=== PATIENT | female | born 1960 | race Caucasian/White ===

== ENCOUNTER 2016-08-15 06:56 | Day surgery (SDC) | payer BC ==
[2016-08-08 13:51] LABS: HEMATOCRIT 40.2 % (36.0-48.0); HEMOGLOBIN 13.6 g/dL (12.0-16.0)
[2016-08-08 14:11] LABS: BUN (BLOOD UREA NITROGEN) 19 MG/DL (6-23); CALCIUM, SERUM 9.5 MG/DL (8.5-10.4); CHLORIDE, SERUM 102 MMOL/L (96-112); CO2 (CARBON DIOXIDE) 28 MMOL/L (24-34); CREATININE 0.98 MG/DL (0.55-1.02); GFR AFRICAN AMERICAN 76 ML/MIN (>=60); GFR NON AFRICAN AMERICAN 65 ML/MIN (>=60); GLUCOSE, SERUM 94 MG/DL (60-99); POTASSIUM, SERUM 4.3 MMOL/L (3.5-5.3); SODIUM, SERUM 138 MMOL/L (135-148)
--- NOTE | ~2016-08-15 | OP ---
Record Of Operation [facility] [address] [place]. [address] NAME: GERDA PEÑA : 62 STATUS : [facility]#: [id number] AGE: 55 ADM/REG DATE : 08/15/16 MR#: [id number] REPORT SERV DATE: 08/15/16 DICTATED BY: Kaci REESE DATE: 08/15/16 REPORT STATUS : Draft TRANSCRIBED BY: SMITH DATE: 08/15/16 DATE OF PROCEDURE: 08/15/2016 PREOPERATIVE DIAGNOSES: 1. Basal cell carcinoma of the left nasal tip. 2. Left nasal tip defect secondary to Mohs micrographic surgical excision of basal cell carcinoma. PROCEDURES: 1. Surgical excisional preparation of left nasal tip defect. 2. Harvesting of full-thickness skin graft from behind the left ear. 3. Intermediate closure of left ear full-thickness skin graft, donor site defect. 4. Reconstruction of left nasal tip with full-thickness skin graft. FINDINGS: A 1.2 cm tall by 1.3 cm wide defect of the left nasal tip, with the medial aspect of the defect nearly in the midline, and the inferior aspect of the defect 3 mm from the alar rim. INDICATION: This 55-year-old female had a biopsy-proven basal cell carcinoma removed yesterday by Mohs micrographic surgical technique. At a previous consultation, prior to the Mohs surgery, I discussed the pros and cons, alternatives, benefits, risks, limitations, and complications (including, but not limited to, infection, graft failure, depression of the graft, elevation of graft, discoloration of the graft, recurrence of tumor, imponderables). She understands and wishes to proceed. The defect was seen yesterday in my office after the Mohs surgery and we once again discussed that full-thickness skin grafting would be our best option because of her small Mohs. Transposition flaps from the nose are not feasible in my opinion. Proper consent obtained. She wishes to proceed. No guarantees expressed. DESCRIPTION OF PROCEDURE: She was taken into the operating room and given general oral endotracheal anesthesia in the supine position. The dressing on her nose was removed revealing the defect. The entire face and upper neck and left ear and left periauricular scalp were prepped with Hibiclens and saline followed by isopropyl alcohol. None of these solutions got in her eyes. None of the alcohol got in the open wound. Sterile drapes were applied. The defect was measured as stated above. A template was made from the suture pack of the defect. There were some irregular edges of the defect inferiorly and these were surgically excisionally prepared with a #15C blade, excising the beveled margin to give perpendicular edges. The nose was then injected with 1% Xylocaine with 1:100,000 epinephrine and 0.5% Marcaine with 1:200,000 epinephrine. The source of the donor site was evaluated. The forehead donor site was not feasible because she had find villous tear that would be present on the graft diffuse. The left preauricular skin was wrinkled somewhat and not felt to be feasible. The skin in the lower half of the postauricular crease and ear had no hair and was smoother as was the skin on her opposite right nasal tip. The template was placed in Record Of Operation [address] [address] NAME: GERDA PEÑA : 62 STATUS : [facility]#: [id number] AGE: 55 ADM/REG DATE : 08/15/16 MR#: [id number] REPORT SERV DATE: 08/15/16 DICTATED BY: Kaci REESE DATE: 08/15/16 REPORT STATUS : Draft TRANSCRIBED BY: SMITH DATE: 08/15/16 the postauricular crease and a fusiform ellipse was marked out around this. The area was injected with 1% Xylocaine with 1:100,000 epinephrine and 0.5% Marcaine with 1:200,000 epinephrine. Five minutes elapsed for vasoconstriction. With the #15 blade, using essentially a no touch technique (only grasping the very end of the graft), the skin was incised according to the markings and the graft harvested in the subcutaneous plane. Hemostasis was obtained with electrocautery. The specimen was placed in the saline immediately. An intermediate closure was accomplished with a deep suture of Monocryl and the skin treated with Dermabond. The skin graft was appropriately defatted to fit the contour of the defect, which was very shallow at the inferior/caudal border and thicker at the superior or cephalad border. The graft was sutured in place with interrupted 6-0 Prolene sutures. The wound was cleansed with hydrogen peroxide and dried. A dressing of triple antibiotic ointment followed by Xeroform, followed by upper portion of a sterile sponge, and this was secured through and through with a 4-0 Prolene suture with two plastic buttons, one placed intranasally and one on the superior surface of the sponge. This was tied and gave the graft gentle, but slightly firm compression. Next, 6-0 Prolene suture was used to sew over and over to secure the sponge compression dressing even further. This was followed by Mastisol and paper tape. A piece of Telfa was placed behind the left ear and taped in place with white paper tape. She was awakened and extubated, and taken to the recovery room in good condition having tolerated the procedure well. Estimated blood loss was less than 5 mL. Home going instructions included prescriptions given for cephalexin, hydrocodone, Zofran, and Phenergan. She is to keep the dressing dry and intact and avoid facial motions. We will see her back in the office in one week. She can remove the dressing behind her left ear in one day. She may shower, but have no direct water on the face when showering. ADEEL/CONNORL Kaci Reese M.D. / [id number] CC: Mary Baer DO
[~2016-08-15 06:56] MED LIST: CALTRA600D PO; HYDROCHLOROT12.5 MG PO; LOP25 PO; OXYCOD PO; PRIN20 PO; V2 PO; VITAMIN D31000 UNIT PO; [UNRECOGNIZED DRUG - OTHER] SL
== END 2016-08-15 17:26 | disposition home or self-care (01) ==
LOC: SDC 06:56
PROVIDERS: Specialist
PROC: 0HR1X73 Replacement of Face Skin with Autologous Tissue Substitute, Full Thickness, External Approach (ICD-10-PCS; principal; 2016-08-15 08:45)
DX: C44.311 Basal cell carcinoma of skin of nose (principal); I10 Essential (primary) hypertension; Z88.5 Allergy status to narcotic agent; Z90.710 Acquired absence of both cervix and uterus; Z98.1 Arthrodesis status; Z79.899 Other long term (current) drug therapy; Z98.890 Other specified postprocedural states
CPT/HCPCS: 80048; 85014; 85018; 93005; A9270-GY; C1894; J0690; J2250; J2405; J2710; J3010